=== PATIENT | male | born 1970 | race Caucasian/White ===

== ENCOUNTER 2017-12-24 09:53 | Emergency (ER) | payer OTHER ==
[~2017-12-24] VITALS: Ht 175.3 cm; Wt 87.1 kg
[~2017-12-24 09:53] MED LIST: CETI-32 PO
[2017-12-24 10:25] VITALS: BP_SYST 121; BP_SYST 146; BP_DIAS 116; BP_DIAS 89
--- NOTE | 2017-12-24 10:28 | NUR ---
PATIENT TO [facility] AT THIS TIME.
--- NOTE | 2017-12-24 10:32 | NUR ---
C/O LEFT KNEE PAIN X YESTERDAY WHILE KICKING A SOCCER BALL HEARD A POP AND PAIN . DENIES N/V/D; SKIN IS PINK/WARM/DRY; AAOX4 WITH EVEN AND STEADY GAIT; LUNGS CLEAR BL; HR EVEN AND REGULAR; PT DENIES ANY FEVER, CP, SOB, OR COUGH AT THIS TIME; PATIENT STATES PAIN OF 10/10 AT THIS TIME; VSS;ER MD MADE AWARE OF PT STATUS.
--- NOTE | 2017-12-24 10:36 | NUR ---
PATIENT TAKEN TO XRAY VIA WHEELCHAIR.
[2017-12-24 12:50] VITALS: BP 132/89
--- NOTE | 2017-12-24 12:50 | NUR ---
Crutches dispensed. Taught proper use, patient returned demo.
== END 2017-12-24 12:50 | disposition home or self-care (01) ==
LOC: MED 09:53
DX: S83.92XA Sprain of unspecified site of left knee, initial encounter (principal); Z79.899 Other long term (current) drug therapy; Z88.8 Allergy status to other drugs, medicaments and biological substances; W21.02XA Struck by soccer ball, initial encounter; Y93.66 Activity, soccer; Y92.89 Other specified places as the place of occurrence of the external cause; Y99.8 Other external cause status
CPT/HCPCS: 73564; 99284